=== PATIENT | female | born 1935 | race Caucasian/White ===

== ENCOUNTER 2019-07-23 07:44 | Outpatient (CLI) | payer MEDICARE, SELFPAY ==
--- NOTE | ~2019-07-23 | US_ITS ---
EXAMINATION: US aorta DATE: 07/23/2019 11:05 INDICATION: Abdominal aortic aneurysm TECHNIQUE: Grayscale, color Doppler, and pulsed Doppler images of the aorta and common iliac arteries were obtained. COMPARISON: 07/31/2018 FINDINGS: Maximum vascular dimensions are as follows: Proximal aorta: 1.8 cm Mid aorta: 2.7 cm Distal aorta: 4.6 cm Right common iliac artery: 2.2 cm Left common iliac artery: 2.2 cm There is a 4.6 x 3.8 cm fusiform infrarenal abdominal aortic aneurysm which previously measured 3.9 x 4.5 cm. IMPRESSION: 1. Fusiform infrarenal abdominal aortic aneurysm with slight interval enlargement. Reviewed, dictated and finalized at location B. IMPRESSION: 1. Fusiform infrarenal abdominal aortic aneurysm with slight interval enlargeme nt.
--- NOTE | ~2019-07-23 | US_ITS ---
EXAMINATION: US carotid duplex BI DATE: 07/23/2019 11:05 INDICATION: Bilateral carotid stenosis. TECHNIQUE: Grayscale, color Doppler, and pulsed Doppler images of the cervical carotid arteries were obtained. The degree of vessel stenosis is placed in one of the following categories: normal, <50%, 5 0-69%, >=70% but less than near-occlusion, near-occlusion, or total occlusion. Note that percent sten osis relative to normal distal artery lumen diameter is indirectly measured from velocity measurement s as described by Jace, et al. Radiology 2003; 229:340-346. COMPARISON: Ultrasound 07/31/2018 FINDINGS: RIGHT: The right common carotid artery (CCA) peak systolic velocity (PSV) is 142 cm/s. The right internal ca rotid artery (ICA) PSV is 225 cm/s. The right ICA end-diastolic velocity (EDV) is 55 cm/s. The right ICA/CCA PSV ratio is 1.6. Grayscale and color Doppler images yield an estimate of >=50% diameter redu ction from plaque in the ICA. There is antegrade flow in the right vertebral artery. LEFT: The left CCA PSV is 122 cm/s. The left ICA PSV is 309 cm/s. The left ICA EDV is 83 cm/s. The left ICA /CCA PSV ratio is 2.5. Grayscale and color Doppler images yield an estimate of >=50% diameter reducti on from plaque in the ICA. There is antegrade flow in the left vertebral artery. IMPRESSION: 1. 50-69% stenosis in the right internal carotid artery. 2. >=70% stenosis in the left internal carotid artery, but less than near occlusion. Reviewed, dictated and finalized at location A. IMPRESSION: 1. 50-69% stenosis in the right internal carotid artery. 2. >=70% stenosis in the left internal carotid artery, but less than near occlu zoraida.
[2019-07-23 08:01] LABS: Basophils Absolute Auto 0.05 K/mm3 (0.00-0.10); Basophils Percent Auto 0.7 % (0.0-1.0); Eosinophils Absolute Auto 0.13 K/mm3 (0.02-0.50); Eosinophils Percent Auto 1.9 % (1.0-6.0); Hematocrit 38.7 % (35.0-42.0); Immature Granulocyte Absolute 0.02 K/mm3 (0.00-0.00); Immature Granulocyte Percent A 0.3 % (0.0-0.0); Lymphocytes Percent Auto 26.6 % (18.0-42.0); Mean Corpuscular HGB Conc 33.6 g/dL (32.0-36.0); Mean Corpuscular Hemoglobin 29.2 pg (27.0-31.0); Mean Platelet Volume 8.6 fl (9.2-11.8); Monocytes Absolute Auto 0.65 K/mm3 (0.10-0.90); Monocytes Percent Auto 9.6 % (2.0-11.0); Neutrophils Absolute Auto 4.1 K/mm3 (1.7-7.2); Neutrophils Percent Auto 60.9 % (50.0-70.0); Platelet Count Result 276 K/mm3 (150-420); Red Blood Count 4.45 M/mm3 (4.20-5.40); White Blood Count 6.8 K/mm3 (4.8-10.8)
[2019-07-23 08:11] LABS: Add Urine Microscopic? YES; Appearance Urine Cloudy (Clear); Bilirubin Urine Negative (Negative); Blood Urine 3+ (Negative); Color Urine Amber (Yellow); Glucose Urine UA Negative (Negative); Ketones Urine Negative (Negative); Leukocyte Esterase Ur Trace (Negative); Nitrate Urine Negative (Negative); Protein Urine 3+ (Negative); Specific Grav Ur >= 1.030 (1.010-1.020); Urobilinogen Urine 0.2 mg/dL (0.2-1.0); pH Urine 5.5 (5.0-8.0)
[2019-07-23 08:17] LABS: Bacteria Urine 4+ /hpf; RBC Urine >75 /hpf (0-2); Squamous Epithelial Cell Urine Few /hpf (Few); WBC Urine 21-30 /hpf (0-3)
[2019-07-23 08:28] LABS: BNP 194 pg/mL (0-100)
[2019-07-23 09:00] LABS: Alanine Aminotransferase 20 U/L (14-59); Alkaline Phosphatase 83 U/L (46-116); Anion Gap 17.6 mmol/L (7-16); Aspartate Amino Transferase 17 U/L (15-37); Bilirubin,Total 0.4 mg/dL (0.00-1.00); Blood Urea Nitrogen 19 mg/dL (7-18); Carbon Dioxide 20 mmol/L (21-32); Chloride 109 mmol/L (98-108); Cholesterol 139 mg/dL (0-200); Estimated Glomerular Filt Rate > 60; Glucose 125 mg/dL (70-99); HDL Direct 41 mg/dL (40-60); LDL Cholesterol Calculated 25 mg/dL (<130); Osmolality Calculated 299 mOsm/kg (285-295); Potassium 3.6 mmol/L (3.5-5.1); Sodium 143 mmol/L (136-145); Triglycerides 366 mg/dL (0-150)
[2019-07-25 16:21] LABS: Vitamin D 25 Hydroxy 22 ng/mL (30-100)
== END 2019-07-23 07:45 | disposition home or self-care (01) ==
LOC: CHSIMG 07:51
PROVIDERS: PCP Internal Medicine; Visit Provider Internal Medicine
DX: I65.23 Occlusion and stenosis of bilateral carotid arteries (principal); I71.4 Abdominal aortic aneurysm, without rupture; E11.9 Type 2 diabetes mellitus without complications; I10 Essential (primary) hypertension; E78.2 Mixed hyperlipidemia; M81.0 Age-related osteoporosis without current pathological fracture; E55.9 Vitamin D deficiency, unspecified; I50.9 Heart failure, unspecified
CPT/HCPCS: 36415; 76775; 80053; 80061; 81001; 82306; 83036; 83880; 85025; 93880

== ENCOUNTER 2019-07-28 14:41 | Outpatient (CLI) | payer MEDICARE, SELFPAY ==
--- NOTE | ~2019-07-28 | US_ITS ---
EXAMINATION: US retroperitoneal comp DATE: 07/28/2019 15:27 INDICATION: Painful hematuria TECHNIQUE: Multiple grayscale and Doppler ultrasound images of the kidneys were obtained. COMPARISON: None. FINDINGS: The right kidney measures 10.0 x 4.8 x 7.7 cm. The left kidney measures 9.8 x 5.5 x 5.8 cm and contains a 10 mm cyst. The kidneys demonstrate normal parenchymal echogenicity. There is no hydro nephrosis. The bladder is normal. IMPRESSION: 1. No sonographic correlate for the patient's symptoms. Reviewed, dictated and finalized at location A.
== END 2019-07-28 14:42 | disposition home or self-care (01) ==
LOC: CHSIMG 14:44
PROVIDERS: PCP Internal Medicine; Visit Provider Internal Medicine
DX: R31.9 Hematuria, unspecified (principal); R10.9 Unspecified abdominal pain
CPT/HCPCS: 76770

== ENCOUNTER 2019-08-26 12:15 | Emergency (ER) | payer MEDICARE, SELFPAY ==
--- NOTE | ~2019-08-26 | CT_ITS ---
EXAMINATION: CT brain wo con DATE: 08/26/2019 12:57 INDICATION: Syncope. TECHNIQUE: Computed tomography (CT) of the head was performed without intravenous contrast. The mA wa s adjusted according to patient size. Iterative reconstruction technique was employed. The dose-lengt h product was 756.67 mGy-cm. COMPARISON: Head CT 09/25/2006 FINDINGS: There are cystic masses in the bilateral parietal-occipital regions with low attenuation in the adjacent white matter. There is an area of low-attenuation in the right frontal lobe white matte r. There is no intracranial hemorrhage. There is mass effect on trigone of left lateral ventricle. Th e paranasal sinuses are clear. The orbits are normal. There is a small right mastoid effusion. IMPRESSION: 1. Cystic masses in the parietal occipital regions and low attenuation in the right frontal lobe whit e matter. These findings are suspicious for metastatic disease. The differential diagnosis includes e ncephalomalacia. Brain MRI without and with contrast is recommended. Reviewed, dictated and finalized at location A. IMPRESSION: 1. Cystic masses in the parietal occipital regions and low attenuation in the r ight frontal lobe white matter. These findings are suspicious for metastatic di sease. The differential diagnosis includes encephalomalacia. Brain MRI without and with contrast is recommended.
--- NOTE | ~2019-08-26 | XR_ITS ---
EXAMINATION: XR chest 1V portable DATE: 08/26/2019 12:57 INDICATION: Syncope. TECHNIQUE: A single frontal view of the chest was obtained. COMPARISON: Chest CT 03/24 FINDINGS: Calcified pulmonary nodules and calcified hilar and mediastinal lymph nodes are consistent with old granulomatous disease. There is a mass in left lung lower lobe. No pleural effusion or pneum othorax. The heart size is normal. IMPRESSION: 1. Mass in left lung lower lobe suspicious for primary bronchogenic carcinoma. Noncontrast chest CT i s recommended. I called this result to Dr. Mata on 08/26/19 at 13:08. Reviewed, dictated and finalized at location A. IMPRESSION: 1. Mass in left lung lower lobe suspicious for primary bronchogenic carcinoma. Noncontrast chest CT is recommended. I called this result to Dr. Mata on 08/25 at 13:08.
--- NOTE | ~2019-08-26 | CT_ITS ---
EXAMINATION: CT abdomen pelvis w con DATE: 08/26/2019 14:21 INDICATION: Metastatic lung cancer. TECHNIQUE: Computed tomography (CT) of the abdomen and pelvis was performed with 100 mL Omnipaque 350 intravenous contrast. Automated exposure control and iterative reconstruction technique were employe d. The dose-length product was 918.88 mGy-cm. COMPARISON: Chest CT 03/14/2011 FINDINGS: The visualized portions of the lung bases demonstrate calcified pulmonary nodules and calci fied hilar lymph nodes, consistent with old granulomatous disease. There is a 3.6 x 2.6 cm mass in le ft lung lower lobe. No pleural effusion. The heart size is normal. There are coronary artery calcific ations. No pericardial effusion. The liver and spleen are normal. There are gallstones in the gallbla dder, which is normal in size. The pancreas and right adrenal gland are normal. There is a chronic 1. 5 cm mass in left adrenal gland, consistent with an adenoma. There is cortical thinning of the kidney s. There are cysts in the kidneys measuring up to 1.2 cm on the left. There is a 4 mm stone in right kidney. There are vascular calcifications at the kendra of the kidneys. There is calcified atherosclero sis of the aorta and many of the other arteries. There is diverticulosis of the colon without evidenc e of diverticulitis. There are no pathologically enlarged lymph nodes. There is no free intraperitone al fluid. There is a mass involving the L1 vertebral body and left pedicle with lytic bone change and with mild central canal stenosis. There is severe thoracic and lumbar spondylosis. IMPRESSION: 1. Mass in left lung lower lobe, consistent with primary bronchogenic carcinoma. CT-guided biopsy is recommended. 2. Lytic lesion in L1, consistent with metastatic disease. Reviewed, dictated and finalized at location A. IMPRESSION: 1. Mass in left lung lower lobe, consistent with primary bronchogenic carcinoma . CT-guided biopsy is recommended. 2. Lytic lesion in L1, consistent with metastatic disease.
--- NOTE | ~2019-08-26 | CT_ITS ---
EXAMINATION:CT chest wo con DATE: 08/26/2019 13:30 INDICATION: Lung mass. TECHNIQUE: Computed tomography (CT) of the chest was performed without intravenous contrast. Automate d exposure control and iterative reconstruction technique were employed. The dose-length product (DLP ) was 393.62 mGy-cm. COMPARISON: Chest CT 03/14/2011 FINDINGS: Calcified pulmonary nodules and calcified hilar and mediastinal lymph nodes are consistent with old granulomatous disease. There is a 3.6 x 2.6 cm mass in left lung lower lobe. No pleural effu zoraida. The heart size is normal. There are coronary artery calcifications. No pericardial effusion. An terior to the sternum, there is a 1.8 cm subepidermal cystic mass, consistent with a sebaceous cyst. There is a chronic 1.5 cm mass in left adrenal gland measuring low-attenuation, consistent with an ad enoma. Partially visualized is volume loss of left kidney. Partially visualized is a lytic lesion inv olving L1 vertebral body and left pedicle. IMPRESSION: 1. 3.6 x 2.6 cm mass in left lung lower lobe, consistent with primary bronchogenic carcinoma. 2. Lytic lesion in L1, consistent with metastatic disease. 3. Consider CT abdomen and pelvis for staging and biopsy planning. Reviewed, dictated and finalized at location A. IMPRESSION: 1. 3.6 x 2.6 cm mass in left lung lower lobe, consistent with primary bronchoge kamryn carcinoma. 2. Lytic lesion in L1, consistent with metastatic disease. 3. Consider CT abdomen and pelvis for staging and biopsy planning.
--- NOTE | 2019-08-26 12:23 | ECG_ITS ---
Measurements Intervals [place] Rate: 67 P: 72 IN: 141 QRS: -2 QRSD: 81 T: 115 QT: 407 QTc: 430 Interpretive Statements SINUS RHYTHM ATRIAL PREMATURE COMPLEXES DELAYED PRECORDIAL R/S TRANSITION ST-T WAVE ABNORMALITY IN HIGH LATERAL LEADS- CONSIDER ISCHEMIA BASELINE ARTIFACT- I, II, III, AVR, AVL, AVF, V1 ABNORMAL ECG Electronically Signed On 08-26-2019 13:03:41 CDT by [place] Horton D.O.
[2019-08-26 12:30] VITALS: BP 152/75; PULSE 71; RESP 16; TEMP 36.3; O2SAT 97
[2019-08-26 12:50] LABS: Basophils Absolute Auto 0.05 K/mm3 (0.00-0.10); Basophils Percent Auto 0.7 % (0.0-1.0); Eosinophils Absolute Auto 0.02 K/mm3 (0.02-0.50); Eosinophils Percent Auto 0.3 % (1.0-6.0); Hematocrit 37.5 % (35.0-42.0); Hemoglobin 12.5 g/dL (11.7-13.8); Immature Granulocyte Absolute 0.03 K/mm3 (0.00-0.00); Immature Granulocyte Percent A 0.4 % (0.0-0.0); Lymphocytes Absolute Auto 0.94 K/mm3 (1.10-4.50); Lymphocytes Percent Auto 13.7 % (18.0-42.0); Mean Corpuscular HGB Conc 33.3 g/dL (32.0-36.0); Mean Corpuscular Volume 90.1 fL (78.0-102.0); Mean Platelet Volume 9.6 fl (9.2-11.8); Monocytes Absolute Auto 0.78 K/mm3 (0.10-0.90); Monocytes Percent Auto 11.4 % (2.0-11.0); Neutrophils Percent Auto 73.5 % (50.0-70.0); Platelet Count Result 272 K/mm3 (150-420); Red Blood Count 4.16 M/mm3 (4.20-5.40); Red Cell Distribution Width 19.8 % (11.6-14.4); White Blood Count 6.8 K/mm3 (4.8-10.8)
[2019-08-26 13:06] LABS: BNP 284 pg/mL (0-100)
[2019-08-26 13:07] LABS: Alanine Aminotransferase 26 U/L (14-59); Albumin Level 3.5 g/dL (3.4-5.0); Alkaline Phosphatase 63 U/L (46-116); Anion Gap 17.6 mmol/L (7-16); Aspartate Amino Transferase 25 U/L (15-37); Bilirubin,Total 0.4 mg/dL (0.00-1.00); Blood Urea Nitrogen 26 mg/dL (7-18); Calcium 9.3 mg/dL (8.5-10.1); Carbon Dioxide 24 mmol/L (21-32); Chloride 109 mmol/L (98-108); Creatine Kinase 134 U/L (26-192); Estimated CRCL calculation 37 ml/min; Estimated Glomerular Filt Rate 55; Glucose 145 mg/dL (70-99); Osmolality Calculated 311 mOsm/kg (285-295); Potassium 3.6 mmol/L (3.5-5.1); Sodium 147 mmol/L (136-145); Total Protein 6.9 g/dL (6.4-8.2); Troponin I 0.05 ng/mL (0.00-0.056)
[2019-08-26 13:09] LABS: INR 1.2; Prothrombin Time 12.4 Seconds (9.64-11.0)
[2019-08-26 13:10] LABS: Lactic Acid Reflex 2.2 mmol/L (0.4-2.0)
[2019-08-26] MEDS: SODIUM CHLORIDE 0.9% IV 1,000 ML 999 ML IV CONT (13:10)
--- NOTE | 2019-08-26 13:19 | PC.NURSE ---
Pt keeps repeating same questions.
[2019-08-26 13:22] LABS: Add Urine Microscopic? YES; Appearance Urine Sl Cloudy (Clear); Bilirubin Urine 1+ (Negative); Blood Urine 3+ (Negative); Color Urine Yellow (Yellow); Glucose Urine UA Negative (Negative); Ketones Urine 1+ (Negative); Leukocyte Esterase Ur Negative LEU/UL (Negative); Nitrate Urine Negative (Negative); Protein Urine 1+ (Negative); Urobilinogen Urine 0.2 mg/dL (0.2-1.0); pH Urine 5.5 (5.0-8.0)
[2019-08-26 13:28] LABS: Bacteria Urine 3+ /hpf; Mucus Urine Moderate /lpf; RBC Urine >75 /hpf (0-2); Squamous Epithelial Cell Urine Few /hpf (Few); WBC Urine 0-3 /hpf (0-3)
--- NOTE | 2019-08-26 14:58 | PC.NURSE ---
Dr. Mata speaking with Pts daughter Yolanda about pts care.
[2019-08-26] MEDS: DEXAMETHASONE SOD PHOS INJ 4 MG/ML VIAL 10 MG IV PUSH (15:15)
[2019-08-26 15:17] VITALS: BP 175/94; PULSE 90; RESP 20; O2SAT 100
--- NOTE | 2019-08-26 15:26 | PC.NURSE ---
[facility] contacted for pt transfer per pts daughters request.
[2019-08-26 15:32] VITALS: BP 159/81
[2019-08-26 15:46] LABS: Reflex Lactic Acid Yes or No Add Lactic
--- NOTE | 2019-08-26 15:52 | ED.FALL ---
HPI - Fall General Chief Complaint: Fall Stated Complaint: ambulance Source: patient and EMS Mode of arrival: EMS History of Present Illness HPI Narrative: This is an 84-year-old female that lives at home with her daughter, that apparently fell between 830 and noon today, her daughter left around 830 and when she came back she found her mother on the floor called EMS. The patient is unsure if she lost consciousness, she does have a hematoma on her right frontal scalp area. The patient neurologically appears intact nonfocal, except for not tracking with her eyes although she has a history of cataracts according to her daughter. Patient's vital signs are stable her blood pressure is stable patient is afebrile otherwise some not complaining of any pain, except for chronic low back pain. Patient does appear to be confused but does answer questions appropriately. There is no chest pain, no shortness of breath no cough no nausea vomiting no abdominal pain no flank pain no fever chills. Patient has a history of atrial fibrillation, coronary artery disease hypertension hyperlipidemia. MD complaint: fall Onset (ago): hour(s) Fall witnessed: no Place fall occurred: home Loss of consciousness: unsure Prolonged down time: hour(s) Symptoms prior to fall: none Severity: mild Related Data Home Medications Medication Instructions Recorded Confirmed apixaban [Eliquis] 2.5 mg PO BID 08/26/19 08/26/19 clopidogrel [Plavix] 75 mg PO DAILY 08/26/19 08/26/19 furosemide [Lasix] 20 mg PO DAILY 08/26/19 08/26/19 lisinopril 40 mg PO DAILY 08/26/19 08/26/19 metoprolol tartrate 50 mg PO Q12H 08/26/19 08/26/19 multivitamin 1 tablet PO DAILY 08/26/19 08/26/19 nifedipine 30 mg PO DAILY 08/26/19 08/26/19 potassium chloride 10 meq PO DAILY 08/26/19 08/26/19 simvastatin 40 mg PO HS 08/26/19 08/26/19 Allergies Allergy/AdvReac Type Severity Reaction Status Date / Time No Known Allergies Allergy Verified 08/26/19 12:35 Review of Systems Review of Systems: All systems reviewed & are unremarkable except as noted in HPI and below Constitutional: Constitutional: Reports as per HPI [facility] Past Medical History Medical History Afib CAD (coronary artery disease) HLD (hyperlipidemia) HTN (hypertension) Exam Const: General: confusion and ill appearing Orientation/consciousness: patient oriented x3 Limitations: altered mental status HENMT: Head: contusion and hematoma Head images: 1. contusion/hematoma Eyes: Other: Difficulty tracking with her eyes past midline Neck: Neck: no lymphadenopathy Chest: Chest palpation & inspection: normal inspection of the chest and abnormal inspection of the chest Resp: Effort & Inspection: normal respiratory effort Auscultation: clear to auscultation bilaterally Cardio: Rate: regular rate Rhythm: regular rhythm GI: Auscultation: normal bowel sounds : General: Yes no CVA tenderness Urinary Catheter: Urinary Catheter: patent and draining Back/Spine/Pelvis: Back: no CVA tenderness Skin: General skin exam: normal color Rashes: no rashes Neuro: General: moves all extremities, no meningeal signs and no focal motor deficits Extrem: General: normal to inspection and no pedal edema Course Course Emergency Course: reassessment of patient, patient appears to be confused although she does respond to questions appropriately no acute distress, continues to have difficulty tracking with her eyes. Patient to be transferred to [facility] which is the preferred hospital after talking to the patient's daughter, accepting physician at [facility] in [place] this doctor Nigel. Vital Signs Vital signs: Vital Signs Temperature 36.3 C L 08/26/19 12:30 Pulse Rate 71 08/26/19 12:30 Respiratory Rate 16 08/26/19 12:30 Blood Pressure 152/75 H 08/26/19 12:30 Pulse Oximetry 97 08/26/19 12:30 Tem
[2019-08-26 16:20] VITALS: BP 169/91; RESP 20
--- NOTE | 2019-08-26 16:20 | PC.NURSE ---
Pt to be accepted to [facility] to dr Manning. Awaiting room assignment.
--- NOTE | 2019-08-26 17:14 | PC.NURSE ---
Pt transported to [facility] via [facility]
== END 2019-08-26 17:13 | disposition short-term general hospital (02) ==
PROVIDERS: Emergency Provider Emergency Medicine; PCP Internal Medicine
DX: G93.9 Disorder of brain, unspecified (principal); R91.8 Other nonspecific abnormal finding of lung field; I48.91 Unspecified atrial fibrillation; E78.5 Hyperlipidemia, unspecified; I10 Essential (primary) hypertension
CPT/HCPCS: 36415; 51701; 70450; 71045; 71250; 74177; 80053; 81001; 82550; 83605; 83735; 83880; 84484; 85025; 85610; 85730; 93005; 96361; 96374; 99284; 99285; J1100; J7030; Q9965